=== PATIENT | female | born 1965 | race Two or more races ===

== ENCOUNTER 2019-04-17 20:27 | Emergency (ER) | payer MEDICAID, OTHER ==
[~2019-04-17] VITALS: Ht 144.8 cm; Wt 68.0 kg
[2019-04-18 00:08] VITALS: BP 122/77
--- NOTE | 2019-04-18 00:09 | NUR ---
PT BIBS. C/O "HAVING BACK PAIN FOR AROUND 3X WEEKS NOW" -SOB. VSS. AOX.4. AMBULATORY
== END 2019-04-18 01:07 | disposition home or self-care (01) ==
LOC: ER 20:32
DX: M62.830 Muscle spasm of back (principal); M54.42 Lumbago with sciatica, left side; I10 Essential (primary) hypertension; J45.909 Unspecified asthma, uncomplicated; E78.00 Pure hypercholesterolemia, unspecified

== ENCOUNTER 2022-01-27 18:12 | Emergency (ER) | payer MEDICAID, OTHER ==
[~2022-01-27] VITALS: Ht 152.4 cm; Wt 70.8 kg
--- NOTE | 2022-01-27 18:35 | NUR ---
57 YRS FEMALE CAME FROM HOME BY PALMER S/P АННА AND FELL DOWN C/O LOWER BACK PAIN FOR 2 DAYS MOVING ALL EXTRAMITY NO WEEKNEE OR NUMBNESS
--- NOTE | 2022-01-27 19:00 | NUR ---
WATING TO BE SEEN BY PROVIDER
--- NOTE | 2022-01-27 19:25 | NUR ---
HAND OFF TO ANGELA MOORE
--- NOTE | 2022-01-27 19:25 | NUR ---
SEEN PATIENT IN BED. SHE WAS COMPLAINING OF PAIN AT RIGHT LOWER BACK. PATIENT HAS HEMATOMA ON THE RIGHT BREAST. PER PATIENT IT HAPPENED THESAME TIME WHEN SHE FELL 2 DAYS AGO. PATIENT IS PRESENTLY TAKING BLOOD THINNERS. VITALS CHECKED AND BEING MONITORED.
[2022-01-27] MEDS ORDERED: HYDROCODONE/APAP 5/325MG TABLET ONE (20:03)
--- NOTE | 2022-01-27 20:15 | NUR ---
SEEN BY MD AT BEDSIDE
[2022-01-27] MEDS ORDERED: HYDROCODONE/APAP 5/325MG TABLET PO ONE (20:30)
[2022-01-27] MEDS ORDERED: HYDROMORPHONE 1 MG/1 ML DISP.SYRIN IV ONE (23:00)
--- NOTE | 2022-01-27 23:02 | NUR ---
CALL FROM [facility]. UNABLE TO ACCEPT PATIENT DUE TO CAPACITY.
--- NOTE | 2022-01-27 23:16 | NUR ---
COVID SWAB DONE AND SENT TO LAB
[2022-01-27 23:46] LABS: BASOPHILS % (AUTO) 0.3 % (0.0-2.0); EOSINOPHILS % (AUTO) 0.2 % (0.0-6.0); HEMATOCRIT 46 % (33-45); HEMOGLOBIN 15.6 g/dL (11.5-14.8); LYMPHOCYTES # (AUTO) 3.5 K/uL (0.8-4.8); LYMPHOCYTES % (AUTO) 28.1 % (20.0-44.0); MEAN CORPUSCULAR HGB CONC 34 g/dl (31.0-36.0); MEAN CORPUSCULAR VOLUME 98 fL (82-100); MONOCYTES # (AUTO) 0.6 K/uL (0.1-1.30); MONOCYTES % (AUTO) 5.1 % (2.0-12.0); NEUTROPHILS # (AUTO) 8.2 K/uL (1.8-8.9); NEUTROPHILS % (AUTO) 66.3 % (43.0-81.0); PLATELET COUNT (AUTO) 193 K/uL (150-450); RED BLOOD CELL COUNT(AUTO) 4.69 MIL/uL (4.0-5.2); WHITE BLOOD COUNT (AUTO) 12.4 K/uL (4.3-11.0)
--- NOTE | 2022-01-27 23:58 | NUR ---
RECEIVED A CALL FROM [facility] FROM [employer] ASKING FOR PATIENT'S CLINICALS.
[2022-01-28 00:02] LABS: CALCIUM, SERUM 8.8 mg/dL (8.5-10.1); CREATININE 0.8 mg/dL (0.6-1.3); POTASSIUM 3.3 mmol/L (3.5-5.1)
[2022-01-28] MEDS ORDERED: HYDROMORPHONE 1 MG/1 ML DISP.SYRIN ONE (00:22)
--- NOTE | 2022-01-28 01:40 | NUR ---
AUTH # FOR TRANSPORT. [id number]
--- NOTE | 2022-01-28 01:55 | NUR ---
[facility] eta 90-120 min.
--- NOTE | 2022-01-28 01:56 | NUR ---
REPORT GIVEN TO OSCAR LOYA OF [facility] DEPT. [phone]
--- NOTE | 2022-01-28 02:44 | NUR ---
[facility] AT BEDSIDE FOR TRANSPORT TO [facility]
[2022-01-28 04:26] VITALS: BP 154/76
== END 2022-01-28 03:00 ==
LOC: ER 18:29
DX: S22.089A Unspecified fracture of T11-T12 vertebra, initial encounter for closed fracture (principal); S20.01XA Contusion of right breast, initial encounter; W18.11XA Fall from or off toilet without subsequent striking against object, initial encounter; Y92.89 Other specified places as the place of occurrence of the external cause; G89.11 Acute pain due to trauma; J45.909 Unspecified asthma, uncomplicated; I25.2 Old myocardial infarction; R32 Unspecified urinary incontinence; E78.5 Hyperlipidemia, unspecified; I10 Essential (primary) hypertension; Z20.822 Contact with and (suspected) exposure to COVID-19; Z86.19 Personal history of other infectious and parasitic diseases
CPT/HCPCS: 99285; 71250; 87426; 74176; 85025; 80048; 36415; 85730; 96374; C9803; J1170